=== PATIENT | male | born 1955 | race Caucasian/White ===

== ENCOUNTER 2022-01-15 10:26 | Inpatient (IN) | payer BC, MEDICARE ==
--- NOTE | 2022-01-15 10:55 | ED ---
General Adult HPI - General Chief complaint: Shortness of Breath Stated complaint: SOB,Chest Pain Time Seen by Provider: 01/15/22 10:40 Source: patient, RN notes reviewed, old records reviewed Mode of arrival: ambulatory Limitations: no limitations - History of Present Illness Initial comments: This is a 66-year-old male who presents emergency Department complaining shortness of breath. Patient states he has no past medical history. Patient states he was having some shortness of breath that started about 3 weeks ago but is gotten progressively worse over the last 3 weeks. Patient states now he walked just a few feet he's half an amp often and has a hard time getting his breath. Patient denies any chest pain or palpitations. Patient denies any fever chills or cough per patient states he had coded back in 2019 and had the vaccine. Patient states last night he walked up some stairs and did get lightheaded. Patient denies any syncopal episode. Patient denies any abdominal pain patient denies nausea vomiting diarrhea. Patient denies any history of similar. Patient states he is not a smoker. - Related Data Home Medications Medication Instructions Recorded Confirmed No Known Home Medications 01/15/22 01/15/22 Allergies Allergy/AdvReac Type Severity Reaction Status Date / Time No Known Allergies Allergy Verified 01/15/22 13:25 Review of Systems ROS Statement: Those systems with pertinent positive or pertinent negative responses have been documented in the HPI. ROS Other: All systems not noted in ROS Statement are negative. Past Medical History Additional Past Medical History / Comment(s): "irregular heart beat" History of Any Multi-Drug Resistant Organisms: None Reported Additional Past Surgical History / Comment(s): left knee operation 2017, Past Psychological History: Anxiety Smoking Status: Former smoker Past Alcohol Use History: None Reported Past Drug Use History: None Reported General Exam - General Exam Comments Initial Comments: GENERAL: Patient is well-developed and well-nourished. Patient is nontoxic and well- hydrated and is in no acute distress. ENT: Neck is soft and supple. No significant lymphadenopathy is noted. Oropharynx is clear. Moist mucous membranes. Neck has full range of motion without eliciting any pain. EYES: The sclera were anicteric and conjunctiva were pink and moist. Extraocular movements were intact and pupils were equal round and reactive to light. Eyelids were unremarkable. PULMONARY: Unlabored respirations. Good breath sounds bilaterally. No audible rales rhonchi or wheezing was noted. CARDIOVASCULAR: There is a regular rate and rhythm without any murmurs gallops or rubs. ABDOMEN: Soft and nontender with normal bowel sounds. SKIN: Skin is clear with no lesions or rashes and otherwise unremarkable. NEUROLOGIC: Patient is alert and oriented x3. Cranial nerves II through XII are grossly intact. Motor and sensory are also intact. Normal speech, volume and content. Symmetrical smile. MUSCULOSKELETAL: Normal extremities with adequate strength and full range of motion. LYMPHATICS: No significant lymphadenopathy is noted PSYCHIATRIC: Normal psychiatric evaluation. Limitations: no limitations Course Vital Signs 01/15/22 01/15/22 01/15/22 10:31 11:22 13:14 Temperature 98.2 F Pulse Rate 121 H 86 78 Respiratory 22 20 14 Rate Blood Pressure 129/80 133/92 132/85 O2 Sat by Pulse 95 95 95 Oximetry Medical Decision Making - Medical Decision Making EKG shows sinus rhythm at 84 bpm MA interval is 214 QRS is 123 QT interval is 373 QTC is 414. Patient's EKG shows no ST segment elevation or depression. Computed tomography scan of the chest shows pulmonary embolisms bilaterally with right heart strain. I spoke with Dr. Tony and she agreed to accept the patient I consult and I spoke with sounds physician's agreed to admit the patient to the patient wrote admitting orders. Patient was also started on high-dose heparin. - Lab Data Result diagrams: 01/15/22 11:05 01/15/22 11:05 Lab Results 01/15/22 01/15/22 01/15/22 Range/Units 11:05 11:05 11:05 WBC 8.7 (3.8-10.6) k/uL RBC 5.02 (4.30-5.90) m/uL Hgb 15.4 (13.0-17.5) gm/dL Hct 44.8 (39.0-53.0) % MCV 89.2 (80.0-100.0) fL MCH 30.6 (25.0-35.0) pg MCHC 34.3 (31.0-37.0) g/dL RDW 12.8 (11.5-15.5) % Plt Count 295 (150-450) k/uL MPV 6.8 Neutrophils % 81 % Lymphocytes % 12 % Monocytes % 4 % Eosinophils % 2 % Basophils % 0 % Neutrophils # 7.0 (1.3-7.7) k/uL Lymphocytes # 1.1 (1.0-4.8) k/uL Monocytes # 0.4 (0-1.0) k/uL Eosinophils # 0.1 (0-0.7) k/uL Basophils # 0.0 (0-0.2) k/uL PT 10.5 (9.0-12.0) sec INR 1.0 (<1.2) APTT 24.2 (22.0-30.0) sec D-Dimer 6.95 H (<0.60) mg/L FEU Sodium 140 (137-145) mmol/L Potassium 4.2 (3.5-5.1) mmol/L Chloride 105 (98-107) mmol/L Carbon Dioxide 22 (22-30) mmol/L Anion Gap 13 mmol/L BUN 12 (9-20) mg/dL Creatinine 0.77 (0.66-1.25) mg/dL Est GFR (CKD-EPI)AfAm >90 (>60 ml/min/1.73 sqM) Est GFR (CKD-EPI)NonAf >90 (>60 ml/min/1.73 sqM) Glucose 130 H (74-99) mg/dL Plasma Lactic Acid Richard (0.7-2.0) mmol/L Calcium 9.2 (8.4-10.2) mg/dL Magnesium 1.9 (1.6-2.3) mg/dL Total Bilirubin 1.0 (0.2-1.3) mg/dL AST 22 (17-59) U/L ALT 25 (4-49) U/L Alkaline Phosphatase 70 (38-126) U/L Troponin I (0.000-0.034) ng/mL NT-Pro-B Natriuret Pep pg/mL Total Protein 7.0 (6.3-8.2) g/dL Albumin 4.3 (3.5-5.0) g/dL Coronavirus (PCR) (Not Detectd) 01/15/22 01/15/22 01/15/22 Range/Units 11:05 11:05 11:05 WBC (3.8-10.6) k/uL RBC (4.30-5.90) m/uL Hgb (13.0-17.5) gm/dL Hct (39.0-53.0) % MCV (80.0-100.0) fL MCH (25.0-35.0) pg MCHC (31.0-37.0) g/dL RDW (11.5-15.5) % Plt Count (150-450) k/uL MPV Neutrophils % % Lymphocytes % % Monocytes % % Eosinophils % % Basophils % % Neutrophils # (1.3-7.7) k/uL Lymphocytes # (1.0-4.8) k/uL Monocytes # (0-1.0) k/uL Eosinophils # (0-0.7) k/uL Basophils # (0-0.2) k/uL PT (9.0-12.0) sec INR (<1.2) APTT (22.0-30.0) sec D-Dimer (<0.60) mg/L FEU Sodium (137-145) mmol/L Potassium (3.5-5.1) mmol/L Chloride (98-107) mmol/L Carbon Dioxide (22-30) mmol/L Anion Gap mmol/L BUN (9-20) mg/dL Creatinine (0.66-1.25) mg/dL Est GFR (CKD-EPI)AfAm (>60 ml/min/1.73 sqM) Est GFR (CKD-EPI)NonAf (>60 ml/min/1.73 sqM) Glucose (74-99) mg/dL Plasma Lactic Acid Richard 1.5 (0.7-2.0) mmol/L Calcium (8.4-10.2) mg/dL Magnesium (1.6-2.3) mg/dL Total Bilirubin (0.2-1.3) mg/dL AST (17-59) U/L ALT (4-49) U/L Alkaline Phosphatase (38-126) U/L Troponin I 0.266 H* (0.000-0.034) ng/mL NT-Pro-B Natriuret Pep 557 pg/mL Total Protein (6.3-8.2) g/dL Albumin (3.5-5.0) g/dL Coronavirus (PCR) (Not Detectd) 01/15/22 Range/Units 11:05 WBC (3.8-10.6) k/uL RBC (4.30-5.90) m/uL Hgb (13.0-17.5) gm/dL Hct (39.0-53.0) % MCV (80.0-100.0) fL MCH (25.0-35.0) pg MCHC (31.0-37.0) g/dL RDW (11.5-15.5) % Plt Count (150-450) k/uL MPV Neutrophils % % Lymphocytes % % Monocytes % % Eosinophils % % Basophils % % Neutrophils # (1.3-7.7) k/uL Lymphocytes # (1.0-4.8) k/uL Monocytes # (0-1.0) k/uL Eosinophils # (0-0.7) k/uL Basophils # (0-0.2) k/uL PT (9.0-12.0) sec INR (<1.2) APTT (22.0-30.0) sec D-Dimer (<0.60) mg/L FEU Sodium (137-145) mmol/L Potassium (3.5-5.1) mmol/L Chloride (98-107) mmol/L Carbon Dioxide (22-30) mmol/L Anion Gap mmol/L BUN (9-20) mg/dL Creatinine (0.66-1.25) mg/dL Est GFR (CKD-EPI)AfAm (>60 ml/min/1.73 sqM) Est GFR (CKD-EPI)NonAf (>60 ml/min/1.73 sqM) Glucose (74-99) mg/dL Plasma Lactic Acid Richard (0.7-2.0) mmol/L Calcium (8.4-10.2) mg/dL Magnesium (1.6-2.3) mg/dL Total Bilirubin (0.2-1.3) mg/dL AST (17-59) U/L ALT (4-49) U/L Alkaline Phosphatase (38-126) U/L Troponin I (0.000-0.034) ng/mL NT-Pro-B Natriuret Pep pg/mL Total Protein (6.3-8.2) g/dL Albumin (3.5-5.0) g/dL Coronavirus (PCR) Not Detected (Not Detectd) Critical Care Time Critical Care Time: Yes Total Critical Care Time: 35 Disposition Clinical Impression: Pulmonary embolism Disposition: ADMITTED IP TO THIS HOSP Time of Disposition: 12:49
[2022-01-15 11:15] LABS: Basophils % (A) 0 %; Eosinophils # (A) 0.1 k/uL (0-0.7); Eosinophils % (A) 2 %; HCT 44.8 % (39.0-53.0); HGB 15.4 gm/dL (13.0-17.5); Lymphocytes # (A) 1.1 k/uL (1.0-4.8); Lymphocytes % (A) 12 %; MCH 30.6 pg (25.0-35.0); MCHC 34.3 g/dL (31.0-37.0); MCV 89.2 fL (80.0-100.0); Mean Platelet Volume 6.8; Monocytes # (A) 0.4 k/uL (0-1.0); Monocytes % (A) 4 %; Neutrophils % (A) 81 %; Platelet Count 295 k/uL (150-450); RBC 5.02 m/uL (4.30-5.90); RDW 12.8 % (11.5-15.5); WBC 8.7 k/uL (3.8-10.6)
[2022-01-15 11:27] LABS: ALT 25 U/L (4-49); AST 22 U/L (17-59); African American GFR (CKD) >90 (>60 ml/min/1.73 sqM); Albumin 4.3 g/dL (3.5-5.0); Alkaline Phosphatase 70 U/L (38-126); Anion Gap 13 mmol/L; Blood Urea Nitrogen 12 mg/dL (9-20); Calcium 9.2 mg/dL (8.4-10.2); Carbon Dioxide 22 mmol/L (22-30); Chloride 105 mmol/L (98-107); Glucose 130 mg/dL (74-99); Magnesium 1.9 mg/dL (1.6-2.3); Non-African American GFR(CKD) >90 (>60 ml/min/1.73 sqM); Potassium 4.2 mmol/L (3.5-5.1); Sodium 140 mmol/L (137-145)
--- NOTE | 2022-01-15 11:30 | XR ---
EXAMINATION TYPE: XR chest 2V DATE OF EXAM: 01/15/2022 COMPARISON: NONE HISTORY: Difficulty in breathing. TECHNIQUE: Frontal and lateral views of the chest are obtained. FINDINGS: There is chronic parenchymal changes bilaterally without suspicious focal air space opacit y, pleural effusion, or pneumothorax seen. The cardiac silhouette size is within normal limits. Brid ging osteophytes in the thoracic spine are present. IMPRESSION: Chronic changes without acute pulmonary process.
[2022-01-15 11:37] LABS: Partial Thromboplastin Time 24.2 sec (22.0-30.0); Prothrombin Time 10.5 sec (9.0-12.0)
[2022-01-15] MEDS ORDERED: HEPARIN SODIUM 1,000 UN/ML (10ML VL) IV ONE (12:26)
[2022-01-15] MEDS ORDERED: HEPARIN SOD,PORK IN 0.45% NACL 25,000 UNIT in 0.45% NACL 1 250ML.BAG IV SCH ×3 (12:30→14:15)
--- NOTE | 2022-01-15 12:42 | CT ---
EXAMINATION TYPE: CT chest angio for PE CT DLP: 722.5 mGycm, Automated exposure control for dose reduction was used. DATE OF EXAM: 01/15/2022 12:26 PM COMPARISON: Chest radiograph from same day. CLINICAL INDICATION:Male, 66 years old with history of Elevated d-dimer; Shortness of breath, chest p ains, elevated d dimer TECHNIQUE/CONTRAST: CTA scan of the thorax is performed with IV Contrast, patient injected with 100 mL of Isovue 370, pul monary embolism protocol. MIP images are created and reviewed. FINDINGS: Motion degraded examination. Pulmonary Artery: There are filling defects demonstrated within the bilateral main pulmonary arteries extending into the segmental and subsegmental pulmonary arteries throughout both lungs. The pulmonar y artery is dilated measuring up to 4.2 cmReflux of contrast into the IVC. Lungs/Pleura: No pneumothorax or pleural effusion. Patchy small wedge-shaped opacities within the sup erior segment of the left lower lobe and inferior right lower lobe likely representing infarcts. Airway: Large airways are patent. Heart: Moderately enlarged. No pericardial effusion. Vasculature: Ectasia of the ascending thoracic aorta measuring up to 4.3 cm. Flattening of the interv entricular septum with dilatation of the right ventricle with ratio 1.5. Mediastinum: No gross evidence of adenopathy. Musculoskeletal: No acute osseous abnormalities. Bilateral shoulder arthropathy. Moderate degenerativ e disc disease. Soft Tissues: Unremarkable. Lower neck: No significant findings. Upper Abdomen: Subcentimeter hypodensity within the left hepatic lobe which is too small to accuratel y characterize.. IMPRESSION: 1. Extensive pulmonary emboli with CT evidence of right heart strain. 2. Wedge-shaped consolidative/groundglass opacities within the bilateral lower lobes likely represent ing pulmonary infarcts in the setting of #1. 3. Moderate cardiomegaly with ectasia of the ascending thoracic aorta measuring up to 4.3 cm. Findings discussed with the ER at 12:31 PM.
[2022-01-15] MEDS ORDERED: SODIUM CHLORIDE 0.9% 1,000 ML IV ONE (12:49)
--- NOTE | 2022-01-15 13:46 | P.GSCN ---
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 He presented to the emergency department with complaints of shortness of breath. Patient initially started having shortness of breath with exertion 2-3 weeks ago. [place], then had been experiencing and as he was walking up the stairs. Over the last week he had driven to and from the [facility], denies any other traveling. He denies any recent surgeries. Does have a knee that he has been getting steroids and then likely will require surgery in the near future. He denies any pain in his legs, no previous history of DVT or pulmonary embolism, no family history of clotting disorders that he is aware of. He is a nonsmoker. Labs were consistent with elevated troponin, CT angiogram of the chest shows bilateral pulmonary embolism with evidence of right heart strain. Vascular surgery was consulted for the above. She denies any shortness of breath presently while lying down, no chest pain, abdominal pain, nausea or vomiting. His been afebrile. Oxygen level 95% on room air, heart rate 78, respiratory rate 14, blood pressure 132/85 CT angiogram chest reports extensive pulmonary emboli with CT evidence of right heart strain, wedge-shaped consolidation/ground glass opacities within the bilateral lower lobes likely representing pulmonary infarcts in the setting of #1. Moderate cardiomegaly with ectasia of the ascending thoracic aorta measuring up to 4.3 cm Labs WBC 8.7 hemoglobin 15.4 hematocrit 89 platelet count 295,000 INR 1.0 d-dimer 6.95 sodium 140 potassium 4.2 BUN 12 creatinine 0.7 glucose 130 troponin 0.266 coronavirus and not detected Past Medical History Additional Past Medical History / Comment(s): "irregular heart beat" History of Any Multi-Drug Resistant Organisms: None Reported Additional Past Surgical History / Comment(s): left knee operation 2017, Past Psychological History: Anxiety Smoking Status: Former smoker Past Alcohol Use History: None Reported Past Drug Use History: None Reported Medications and Allergies Home Medications Medication Instructions Recorded Confirmed Type No Known Home Medications 01/15/22 01/15/22 History Allergies Allergy/AdvReac Type Severity Reaction Status Date / Time No Known Allergies Allergy Verified 01/15/22 13:25 Surgical - Exam Vital Signs Temp Pulse Resp BP Pulse Ox 98.2 F 121 H 22 129/80 95 01/15/22 10:31 01/15/22 10:31 01/15/22 10:31 01/15/22 10:31 01/15/22 10:31 General appearance: The patient is alert, oriented, appears in no acute d istress. HET: Head is normocephalic and atraumatic. Neck: Supple. Heart: Regular rate and rhythm. Lungs: Appeared in no distress, equal expansion of the lungs. Abdomen: Soft, nontender, nondistended. Extremities: Normal skin color and turgor. No cyanosis, rash, ulceration, clubbing, or edema. Neurological: No focal deficits. Alert and oriented. Results - Labs 01/15/22 11:05 01/15/22 11:05 Abnormal Lab Results - Last 24 Hours (Table) 01/15/22 01/15/22 01/15/22 Range/Units 11:05 11:05 11:05 D-Dimer 6.95 H (<0.60) mg/L FEU Glucose 130 H (74-99) mg/dL Troponin I 0.266 H* (0.000-0.034) ng/mL Diabetes panel 01/15/22 Range/Units 11:05 Sodium 140 (137-145) mmol/L Potassium 4.2 (3.5-5.1) mmol/L Chloride 105 (98-107) mmol/L Carbon Dioxide 22 (22-30) mmol/L BUN 12 (9-20) mg/dL Creatinine 0.77 (0.66-1.25) mg/dL Glucose 130 H (74-99) mg/dL Calcium 9.2 (8.4-10.2) mg/dL AST 22 (17-59) U/L ALT 25 (4-49) U/L Alkaline Phosphatase 70 (38-126) U/L Total Protein 7.0 (6.3-8.2) g/dL Albumin 4.3 (3.5-5.0) g/dL Calcium panel 01/15/22 Range/Units 11:05 Calcium 9.2 (8.4-10.2) mg/dL Albumin 4.3 (3.5-5.0) g/dL Pituitary panel 01/15/22 Range/Units 11:05 Sodium 140 (137-145) mmol/L Potassium 4.2 (3.5-5.1) mmol/L Chloride 105 (98-107) mmol/L Carbon Dioxide 22 (22-30) mmol/L BUN 12 (9-20) mg/dL Creatinine 0.77 (0.66-1.25) mg/dL Glucose 130 H (74-99) mg/dL Calcium 9.2 (8.4-10.2) mg/dL Adrenal panel 01/15/22 Range/Units 11:05 Sodium 140 (137-145) mmol/L Potassium 4.2 (3.5-5.1) mmol/L Chloride 105 (98-107) mmol/L Carbon Dioxide 22 (22-30) mmol/L BUN 12 (9-20) mg/dL Creatinine 0.77 (0.66-1.25) mg/dL Glucose 130 H (74-99) mg/dL Calcium 9.2 (8.4-10.2) mg/dL Total Bilirubin 1.0 (0.2-1.3) mg/dL AST 22 (17-59) U/L ALT 25 (4-49) U/L Alkaline Phosphatase 70 (38-126) U/L Total Protein 7.0 (6.3-8.2) g/dL Albumin 4.3 (3.5-5.0) g/dL Assessment and Plan Assessment: 1. Extensive bilateral pulmonary emboli with suspected right heart strain 2. Shortness of breath Plan: 1. Start heparin drip 2. Await echocardiogram results 3. Venous duplex bilateral lower extremities 4. Consider consultation to hematology 5. Further recommendations based on findings of echocardiogram, if right heart strain confirmed will proceed with EKOS Thank you for this consultation, we will continue to follow. The impression and plan of care has been dictated as directed. I performed a history and examination of this patient, discussed the same with the dictator. I agree with the dictator's note ,documented as a scribe. Any additional findings or plans will be noted.
[2022-01-15] MEDS ORDERED: ALTEPLASE 10 MG in SODIUM CHLORIDE 0.9% 90 ML IV ONE (14:06)
[2022-01-15] MEDS ORDERED: SODIUM CHLORIDE 0.9% 1,000 ML IV SCH ×3 (14:15)
[2022-01-15 15:18] LABS: Basophils # (A) 0.1 k/uL (0-0.2); Basophils % (A) 1 %; Eosinophils # (A) 0.1 k/uL (0-0.7); Eosinophils % (A) 1 %; HCT 45.9 % (39.0-53.0); HGB 15.6 gm/dL (13.0-17.5); Lymphocytes # (A) 1.7 k/uL (1.0-4.8); Lymphocytes % (A) 20 %; MCH 30.8 pg (25.0-35.0); MCHC 33.9 g/dL (31.0-37.0); MCV 90.8 fL (80.0-100.0); Mean Platelet Volume 6.9; Monocytes # (A) 0.4 k/uL (0-1.0); Monocytes % (A) 4 %; Neutrophils # (A) 6.4 k/uL (1.3-7.7); Neutrophils % (A) 73 %; Platelet Count 272 k/uL (150-450); RBC 5.05 m/uL (4.30-5.90); RDW 12.8 % (11.5-15.5); WBC 8.8 k/uL (3.8-10.6)
[2022-01-15 15:56] LABS: Partial Thromboplastin Time 77.4 sec (22.0-30.0)
[2022-01-15 16:08] LABS: African American GFR (CKD) >90 (>60 ml/min/1.73 sqM); Anion Gap 14 mmol/L; Blood Urea Nitrogen 12 mg/dL (9-20); Calcium 9.3 mg/dL (8.4-10.2); Carbon Dioxide 22 mmol/L (22-30); Chloride 104 mmol/L (98-107); Glucose 97 mg/dL (74-99); Non-African American GFR(CKD) >90 (>60 ml/min/1.73 sqM); Sodium 140 mmol/L (137-145)
[2022-01-15 16:28] LABS: Potassium 4.4 mmol/L (3.5-5.1)
[2022-01-15] MEDS ORDERED: fentaNYL (PF) 50 MCG/ML 2 ML AMP ONE (17:06)
[2022-01-15] MEDS: fentaNYL (PF) 50 MCG/ML 2 ML AMP IV ONE ×2 (17:25→17:56)
[2022-01-15] MEDS: MIDAZOLAM 2 MG/2 ML VIAL IV ONE ×2 (17:25→17:56)
[2022-01-15] MEDS ORDERED: IV FLUID CONTINUATION 800 ML IV ONE (17:25)
[2022-01-15] MEDS ORDERED: LIDOCAINE 1% INJ 10MG/ML (30 ML VIAL-PF) SQ ONE (17:29)
[2022-01-15] MEDS: ALTEPLASE 10 MG in SODIUM CHLORIDE 0.9% 90 ML IV ONE ×6 (17:31→18:58)
[2022-01-15] MEDS: HEPARIN SOD,PORK IN 0.45% NACL 25,000 UNIT in 0.45% NACL 1 250ML.BAG IV SCH ×4 (17:32→19:00)
[2022-01-15] MEDS: SODIUM CHLORIDE 0.9% 1,000 ML IV SCH ×7 (17:32→19:02)
[2022-01-15] MEDS ORDERED: ALTEPLASE 2 MG VIAL (CATHFLO) MISCELLANE ONE (17:49)
[2022-01-15] MEDS ORDERED: ONDANSETRON 4 MG/2 ML VIAL IVP PRN (18:17)
--- NOTE | 2022-01-15 18:25 | P.OP ---
Date of Procedure: 01/15/22 Preoperative Diagnosis: Bilateral submassive pulmonary embolism. Postoperative Diagnosis: Same. Procedure(s) Performed: #1 Ultrasound-guided cannulation left femoral vein 2. #2: Placement of Ekos catheter into the pulmonary artery on a bilateral basis with initiation of TPA thrombo-lysis. Anesthesia: local (With 2 mg of Versed administered intravenously for moderate conscious sedation purposes.) Surgeon: Houston Connors Estimated Blood Loss (ml): 5 Urine output (ml): 0 Pathology: none sent Condition: stable Disposition: ICU Indications for Procedure: Patient is a 66-year-old male who presented with a three-week history of easy fatigability and eventually this progressed to shortness of breath. He presented the emergency room. CTA of the pulmonary arteries demonstrates bilateral submassive pulmonary emboli. Evidence of right heart strain was noted on echocardiogram and troponins were elevated. Because of this the patient is offered to TPA thrombo-lysis. This understood that the clot may be somewhat resistant to thrombo-lysis due to the significant possibility of chronicity greater than 2 weeks. Description of Procedure: Patient was brought to the special procedure suite. Both groins were sterilely prepped and draped in usual manner. Utilizing ultrasound the left common femoral vein was identified. 1% Xylocaine was utilized for local anesthesia tissues overlying the left femoral artery. Through this anesthetized area with the aid of ultrasound a multipurpose needle was utilized to cannulate the vein. Once cannulated a 0.035 inch guidewire was advanced. The needle was withdrawn and a 5-Mohawk sheath was placed. This was repeated a second time. Each sheath was then secured to the skin with nylon suture. Angled glide catheter and guidewire combinations were utilized to selective right pulmonary artery. Honey was exposed variants advancing the catheter into the more distal pulmonary segment due to presumed thrombus burden. The glide wire was removed and glide advantage guidewire was advanced through the angled glide catheter. The glide catheter was then removed and the cross catheter was advanced over the guidewire into the right pulmonary artery. Guidewire was withdrawn and the vibrating core of the catheter was advanced and secured. 2 mg of TPA were then instilled through the drug lumen of each catheter. A similar procedure was performed to cannulate the left pulmonary artery as described for the right. Proper dressings were applied. Patient tolerated procedure well.
[2022-01-15 18:40] LABS: Glucose,Whole Blood 96 mg/dL (70-110)
--- NOTE | 2022-01-15 19:55 | US ---
EXAMINATION TYPE: US venous doppler duplex LE BI DATE OF EXAM: 01/15/2022 7:37 PM COMPARISON: CT chest 01/15/2022 CLINICAL HISTORY: Bilateral PE, evaluate for DVT. bilateral PE SIDE PERFORMED: Bilateral TECHNIQUE: The lower extremity deep venous system is examined utilizing real time linear array sonog vidal with graded compression, doppler sonography and color-flow sonography. VESSELS IMAGED: Common Femoral Vein Deep Femoral Vein Greater Saphenous Vein * Femoral Vein Popliteal Vein Small Saphenous Vein * Proximal Calf Veins (* superficial vessels) Right Leg: Echogenic material in mid and distal popilteal vein Left Leg: CFV not visualized due to patient having a heparin drip in groin. Could not compress dista l femoral vein. Popliteal vein limited due to pt not being able to bend leg, but veins did not appear compressible. IMPRESSION: Exam is limited. Deep venous thrombosis noted in the right popliteal and superficial femo ral vein, likely left popliteal vein
[2022-01-15 19:59] LABS: Basophils % (A) 1 %; Eosinophils # (A) 0.1 k/uL (0-0.7); Eosinophils % (A) 1 %; HCT 43.9 % (39.0-53.0); HGB 15.1 gm/dL (13.0-17.5); Lymphocytes # (A) 2.1 k/uL (1.0-4.8); Lymphocytes % (A) 25 %; MCH 31.1 pg (25.0-35.0); MCHC 34.4 g/dL (31.0-37.0); MCV 90.3 fL (80.0-100.0); Monocytes # (A) 0.5 k/uL (0-1.0); Monocytes % (A) 5 %; Neutrophils # (A) 5.8 k/uL (1.3-7.7); Neutrophils % (A) 67 %; Platelet Count 262 k/uL (150-450); RBC 4.87 m/uL (4.30-5.90); RDW 13.1 % (11.5-15.5); WBC 8.6 k/uL (3.8-10.6)
[2022-01-15] MEDS: HYDROcodone/APAP 5-325MG 1 EACH TAB PO PRN (21:25)
[2022-01-16] MEDS: HYDROcodone/APAP 5-325MG 1 EACH TAB PO PRN (06:16)
[2022-01-16 08:51] LABS: HCT 41.3 % (39.0-53.0); HGB 13.9 gm/dL (13.0-17.5); MCH 30.7 pg (25.0-35.0); MCHC 33.7 g/dL (31.0-37.0); MCV 91.1 fL (80.0-100.0); Mean Platelet Volume 7.5; Platelet Count 217 k/uL (150-450); RBC 4.53 m/uL (4.30-5.90); RDW 12.9 % (11.5-15.5); WBC 8.3 k/uL (3.8-10.6)
[2022-01-16 09:04] LABS: Partial Thromboplastin Time 25.3 sec (22.0-30.0); Prothrombin Time 10.9 sec (9.0-12.0)
--- NOTE | 2022-01-16 09:52 | CA ---
Transthoracic Echo Report Name: Lm Avila Age: 66 Gender: M : 1955 Exam Date: 01/15/2022 13:01 Exam Location: [place] [facility] Ht (in): 75 Wt (lb): 265 Ordering Physician: Bony Jensen MD Attending/Referring Phys: Hotel Clerk Wendy Valdez RDCS Procedure CPT: Indications: Pulmonary Embolism Cardiac Hx: Technical Quality: Good Contrast 1: Total Dose (mL): Contrast 2: Total Dose (mL): MEASUREMENTS (Male / Female) Normal Values 2D ECHO LV Diastolic Diameter PLAX 4.5 cm 4.2 - 5.9 / 3.9 - 5.3 cm LV Systolic Diameter PLAX 2.9 cm IVS Diastolic Thickness 1.6 cm 0.6 - 1.0 / 0.6 - 0.9 cm LVPW Diastolic Thickness 1.4 cm 0.6 - 1.0 / 0.6 - 0.9 cm LV Relative Wall Thickness 0.7 RV Internal Dim ED PLAX 4.0 cm LA Systolic Diameter LX 4.2 cm 3.0 - 4.0 / 2.7 - 3.8 cm LA Volume 68.7 cm??? 18 - 58 / 22 - 52 cm??? M-MODE Aortic Root Diameter MM 4.0 cm MV E Point Septal Separation 1.3 cm AV Cusp Separation MM 2.9 cm DOPPLER AV Peak Velocity 140.9 cm/s AV Peak Gradient 7.9 mmHg AI Peak Velocity 374.9 cm/s AI Peak Gradient 56.2 mmHg AI Pressure Half Time 554.4 ms MV Area PHT 3.9 cm??? Mitral E Point Velocity 48.5 cm/s Mitral A Point Velocity 61.3 cm/s Mitral E to A Ratio 0.8 MV Deceleration Time 193.9 ms MV E' Velocity 7.7 cm/s Mitral E to MV E' Ratio 6.3 TR Peak Velocity 266.8 cm/s TR Peak Gradient 28.5 mmHg Right Ventricular Systolic Press 33.3 mmHg FINDINGS Left Ventricle Left ventricular ejection fraction is estimated at 55-60 %. Left ventricular cavity size normal. Moderate concentric left ventricular hypertrophy. Right Ventricle Moderate to severe right ventricular dilatation. Mild pulmonary hypertension. Right Atrium Normal right atrial size. Left Atrium Mildly increased left atrial diameter. Mildly increased left atrial volume. No evidence for an atrial septal defect. Mitral Valve Structurally normal mitral valve. No mitral stenosis, regurgitation or prolapse. Aortic Valve Trileaflet aortic valve, focal thickening of the aortic valve cusps. Mild aortic regurgitation. Tricuspid Valve Structurally normal tricuspid valve. Mild tricuspid regurgitation. Pulmonic Valve Mild pulmonic regurgitation. Pericardium Normal pericardium. No pericardial effusion. Aorta Moderate aortic dilatation at the level of the sinuses of valsalva 40 mm CONCLUSIONS Left ventricular ejection fraction 55-60% Moderate LVH RVSP 33 however possibly underestimated secondary to RV dilation and hypokinesis Moderate to severely dilated right ventricle with mild RV hypokinesis Mild tricuspid regurgitation Mild aortic regurgitation Ascending aorta 4.0 cm Previewed by: Dr. Navneet Padgett DO (Electronically Signed) Final Date: 16 January 2022 09:51
--- NOTE | 2022-01-16 09:54 | CDI ---
Documentation Clarification Form Date: 01/16/2022 09:36:38 AM From: Lynda Ardon RN CCDS Admit Date: 01/15/2022 12:49:00 PM Patient Name: Lm Avila Visit Number: [id number] Discharge Date: ATTENTION: The Clinical Documentation Specialists (CDI) and [facility] Coding Staff appreciate your assistance in clarifying documentation. Please respond to the clarification below the line at the bottom and electronically sign. The CDI & [facility] Coding staff will review the response and follow-up if needed. Please note: Queries are made part of the Legal Health Record. If you have any questions, please contact the author of this message via ITS. Dr. Houston Connors Suspected right heart strain is documented 01/15, Vascular Surgery note. Additional clarification regarding the Suspected right heart strain is requested. History/Risk Factors: 66-year-old male presents to the ED with shortness of breath with exertion started 2-3 weeks ago. Medical history: Irregular heartbeat and anxiety. 01/15, Vascular Surgery. Clinical Indicators: BNP 01/15: 557 CT chest angio: 02/15 Extensive pulmonary emboli with CT evidence of right heart strain. Treatment: 01/15 EXOS Catheter; 01/15 01/16 Alteplase IVPB; 01/15 01/15 Heparin IVPB Please clarify the acuity and etiology of Cor pulmonale, if known: [ ] Acute Cor pulmonale due to pulmonary embolism [ x ] Unable to determine [ ] Other, please specify Template Last Revised: May 2020) MTDD
[2022-01-16] MEDS ORDERED: APIXABAN 5 MG TAB PO SCH (12:00)
--- NOTE | 2022-01-16 12:02 | P.PN ---
Subjective Progress Note Date: 01/16/22 Principal diagnosis: Bilateral Pulmonary embolism The patient seen and examined today as a follow-up. He is in the ICU. Yesterday he underwent EKOS for his submassive bilateral pulmonary embolism with right heart strain. Today the patient states his breathing is easier. He feels like he does not take a speck of a deep breath. His oxygen saturation has been stable 94-96%. He did have to have a couple liters of oxygen through the night while he was sleeping. He's been afebrile. No signs of bleeding. Bilateral lower extremities with good sensorimotor. Objective - Vital Signs Vital signs: Vital Signs Temp 98.0 F 01/16/22 08:00 Pulse 58 L 01/16/22 10:00 Resp 10 L 01/16/22 10:00 BP 118/72 01/16/22 10:00 Pulse Ox 97 01/16/22 10:00 FiO2 Intake & Output 01/15/22 01/16/22 01/16/22 18:59 06:59 18:59 Intake Total 50 1360.0 375.0 Output Total 550 0 Balance 50 810.0 375.0 Weight 120.202 kg 125.8 kg Intake: IV 50 Intake, IV Titration 1360.0 225.0 Amount Alteplase 10 mg In Sodium 80 Chloride 0.9% 90 ml @ 1 MG/HR 10 mls/hr IV .Q10H [facility] Rx#:[id number] Alteplase 10 mg In Sodium 80 Chloride 0.9% 90 ml @ 1 MG/HR 10 mls/hr IV .Q10H [facility] Rx#:[id number] Heparin Sod,Pork in 0.45% 27.5 7.5 NaCl 25,000 unit In 0.45 % NaCl 1 250ml.bag @ 2.5 mls/hr IV .Q24H [facility] Rx#: [id number] Heparin Sod,Pork in 0.45% 27.5 7.5 NaCl 25,000 unit In 0.45 % NaCl 1 250ml.bag @ 2.5 mls/hr IV .Q24H [facility] Rx#: [id number] Sodium Chloride 0.9% 1, 385 105 000 ml @ 35 mls/hr IV . Q24H [facility] Rx#:[id number] Sodium Chloride 0.9% 1, 385 105 000 ml @ 35 mls/hr IV . Q24H [facility] Rx#:[id number] Sodium Chloride 0.9% 1, 375 000 ml @ 75 mls/hr IV . [id number] [facility] Rx#:[id number] Oral 150 Output: Urine 550 0 Other: Voiding Method Urinal - Exam General appearance: The patient is alert, oriented, appears in no acute di stress. HET: Head is normocephalic and atraumatic. Pupils are equal and reactive. Neck: Supple. Heart: S1 S2. Regular rate and rhythm. Lungs: Clear to auscultation bilaterally. Abdomen: Soft, nontender, nondistended. Extremities: Normal skin color and turgor. No cyanosis, rash, ulceration, club carla, or edema. Radial a of left groin with catheter and sheaths in place, no hematoma or bleeding noted. Bilateral pedal pulses are 2/4 bilaterally. Neurological: No focal deficits. Strength and sensation are grossly intact. - Labs CBC & Chem 7: 01/16/22 07:49 01/15/22 15:05 Labs: Abnormal Lab Results - Last 24 Hours (Table) 01/15/22 01/15/22 01/15/22 Range/Units 11:05 11:05 11:05 APTT (22.0-30.0) sec D-Dimer 6.95 H (<0.60) mg/L FEU Glucose 130 H (74-99) mg/dL Troponin I 0.266 H* (0.000-0.034) ng/mL 01/15/22 Range/Units 15:05 APTT 77.4 H (22.0-30.0) sec D-Dimer (<0.60) mg/L FEU Glucose (74-99) mg/dL Troponin I (0.000-0.034) ng/mL Assessment and Plan Assessment: 1. Extensive bilateral pulmonary emboli with right heart strain status post EKOS initiation of TPA thrombolysis 2. Shortness of breath Plan: 1. Discontinue heparin and EKOS 2. EKOS catheters removed, please remove sheaths and apply pressure until hemostasis achieved 3. Patient to lie flat for 1-2 hours status post sheath removal then may ambulate as tolerated 4. Start Eliquis 10 mg BID, give first dose now 5. From a vascular surgical standpoint if patient does well ambulating and oxygen saturation stable he may be discharged home if cleared by medicine Thank you for this consultation, we will sign off at this time. The impression and plan of care has been dictated as directed. I performed a history and examination of this patient, discussed the same with the dictator. I agree with the dictator's note ,documented as a scribe. Any additional findings or plans will be noted.
[2022-01-16 12:35] VITALS: TEMP 98.4
[2022-01-16 15:01] VITALS: BP 129/83; PULSE 61; RESP 12
--- NOTE | 2022-01-16 16:02 | P.HPIM ---
History of Present Illness H&P Date: 01/15/22 Chief Complaint: Short of breath This is a very pleasant 66-year-old patient who does follow Dr. Hugo Pritchard. Patient has been much unremarkable pass medical history except for arthritis especially the knees. Patient does a nonambulatory drop pretty much sits on the desk quite a bit. Otherwise no real other medical history. About 3 weeks ago while playing golf noticed that he is beginning short of breath and walking incline. He notices that the symptoms progressively got worse. Becoming more and more short of breath. Became more profound yesterday. No orthopnea. No edema. No swelling of the legs. No family history of blood clots. Symptoms became quite significant yesterday. No fever no chills. No cough. In the ER as chest CTA showed bilateral extensive pulmonary emboli with evidence of right heart strain. When I was called by Dr. Jensen from ER and did call Dr. Tony from vascular. They do patient was taken down to the OR andECOS was placed. Saw the patient with ICU. at the bedside. Review of systems: GEN.: Tired EYES: None HEENT: None NECK: None RESPIRATORY: As above CARDIOVASCULAR: None GASTROINTESTINAL: None GENITOURINARY: None MUSCULOSKELETAL: Joint pains LYMPHATICS: None HEMATOLOGICAL: None PSYCHIATRY: None NEUROLOGICAL: None Past medical history to include: Arthritis Social history: . Employed. Does smoke in the past. No significant alcohol history. Family history: Reviewed, noncontributory to presentation Physical examination: VITAL SIGNS: 98.2, 121, 22, 129/80, 95% room air upon presentation GENERAL: BMI 34.7, laying in bed not in distress. EYES: Pupils equal. Conjunctiva normal. HEENT: External appearance of nose and ears normal, oral cavity grossly normal. NECK: JVD not raised; masses not palpable. HEART: First and second heart sounds are normal; no edema. LUNGS: Respiratory rate normal; decreased breath sound. ABDOMEN: Soft, nontender, liver spleen not palpable, no masses palpable. Drawn IV access forECOS PSYCH: Alert and oriented x3; mood and affect normal. MUSCULOSKELETAL:No Clubbing/cyanosis;muscles-grossly intact. Evidence of OA NEUROLOGICAL: Cranial nerves grossly intact; no facial asymmetry, power and sensation grossly intact. LYMPHATICS: No lymph nodes palpable in the axilla and neck INVESTIGATIONS, reviewed in the clinical context: WBC 8.7 hemoglobin 15.4 potassium 4.2 creatinine 0.77 Troponin I 0.266 COVID 19: Not detected 2-D echocardiogram: EF 55-60%. Moderate concentric LVH. Moderate to severe right ventricular dilatation. EKG tracing personally reviewed by me-normal sinus rhythm, nonspecific finding Chest CTA: Extensive pulmonary emboli with evidence of right heart strain. Right sacral consolidation opacities within the bilateral lower lobes. Moderate cardiomegaly. Assessment and plan: -Acute bilateral severe pulmonary embolism with right ventricular dilatation. IV heparin. Vascular surgical consulted who proceeded to do well ECOS with IV heparin and IV TPA. -Bilateral acute pulmonary infarct from PE - left ventricular hypertrophy -IV heparin monitoring Follow PTT -Obesity BMI 34.7 Weight loss measures -Primary osteoarthritis Tylenol as needed Patient ICU.ECOS system in place with IV heparin and TPA. Being closely bucky tored. Follow with vascular. Care was discussed with the patient and at the bedside. Questions answered. Past Medical History Additional Past Medical History / Comment(s): "irregular heart beat" History of Any Multi-Drug Resistant Organisms: None Reported Past Surgical History: Orthopedic Surgery Additional Past Surgical History / Comment(s): left knee operation 2017, Past Psychological History: Anxiety Smoking Status: Former smoker Past Alcohol Use History: None Reported Past Drug Use History: None Reported Medications and Allergies Home Medications Medication Instructions Recorded Confirmed Type Apixaban [Eliquis Starter Pack 5 - 10 mg PO DIRECTED 30 Days 01/16/22 Rx (for VTE)] #1 each Allergies Allergy/AdvReac Type Severity Reaction Status Date / Time No Known Allergies Allergy Verified 01/15/22 13:25 Physical Exam Vitals: Vital Signs Temp Pulse Pulse Resp BP BP Pulse Ox 01/16/22 10:00 58 L 10 L 118/72 97 01/16/22 09:00 55 L 14 119/74 95 01/16/22 08:00 98.0 F 59 L 18 111/87 96 01/16/22 07:00 54 L 15 126/82 96 01/16/22 06:00 17 118/86 94 L 01/16/22 05:00 53 L 23 110/81 97 01/16/22 04:00 97.8 F 56 L 16 113/78 01/16/22 03:00 53 L 18 111/67 95 10/21/22 02:00 61 18 114/82 95 01/16/22 01:00 58 L 14 114/76 94 L 01/16/22 00:14 18 114/76 95 01/16/22 00:00 97.8 F 63 21 114/75 94 L 01/15/22 23:00 73 27 H 93 L 01/15/22 22:45 73 22 93 L 01/15/22 22:30 67 23 94 L 01/15/22 22:15 68 19 115/78 91 L 01/15/22 22:00 59 L 12 90 L 01/15/22 21:45 64 13 106/88 92 L 01/15/22 21:30 72 17 106/88 93 L 01/15/22 21:15 72 21 106/88 90 L 01/15/22 21:00 69 20 116/80 94 L 01/15/22 20:59 19 01/15/22 20:49 19 120/62 93 L 01/15/22 20:45 72 17 116/80 90 L 01/15/22 20:30 72 14 124/78 93 L 01/15/22 20:15 80 21 124/78 94 L 01/15/22 20:00 97.9 F 72 20 117/83 90 L 01/15/22 19:45 75 14 117/83 91 L 01/15/22 19:30 78 15 123/96 92 L 01/15/22 19:15 73 17 85/66 93 L 01/15/22 19:00 71 14 124/94 92 L 01/15/22 18:45 73 11 L 124/94 93 L 01/15/22 18:44 70 11 L 124/94 93 L 01/15/22 18:40 98.0 F 72 18 124/94 94 L 01/15/22 16:39 73 18 136/94 96 01/15/22 14:42 75 20 127/93 96 01/15/22 13:14 78 14 132/85 95 01/15/22 11:22 86 20 133/92 95 Intake and Output 01/15/22 01/16/22 01/16/22 22:59 06:59 14:59 Intake Total 390.0 1020.0 375.0 Output Total 550 0 Balance 390.0 470.0 375.0 Intake: IV 50 Intake, IV Titration 340.0 1020.0 225.0 Amount Alteplase 10 mg In Sodium 20 60 Chloride 0.9% 90 ml @ 1 MG/HR 10 mls/hr IV .Q10H [facility] Rx#:[id number] Alteplase 10 mg In Sodium 20 60 Chloride 0.9% 90 ml @ 1 MG/HR 10 mls/hr IV .Q10H [facility] Rx#:[id number] Heparin Sod,Pork in 0.45% 5.0 22.5 7.5 NaCl 25,000 unit In 0.45 % NaCl 1 250ml.bag @ 2.5 mls/hr IV .Q24H [facility] Rx#: [id number] Heparin Sod,Pork in 0.45% 5.0 22.5 7.5 NaCl 25,000 unit In 0.45 % NaCl 1 250ml.bag @ 2.5 mls/hr IV .Q24H [facility] Rx#: [id number] Sodium Chloride 0.9% 1, 70 315 105 000 ml @ 35 mls/hr IV . Q24H [facility] Rx#:[id number] Sodium Chloride 0.9% 1, 70 315 105 000 ml @ 35 mls/hr IV . Q24H [facility] Rx#:[id number] Sodium Chloride 0.9% 1, 150 225 000 ml @ 75 mls/hr IV . [id number] [facility] Rx#:[id number] Oral 150 Output: Urine 550 0 Other: Voiding Method Urinal Urinal Weight 120.202 kg 125.8 kg Results CBC & Chem 7: 01/16/22 07:49 01/15/22 15:05 Labs: Abnormal Lab Results - Last 24 Hours (Table) 01/15/22 01/15/22 01/15/22 Range/Units 11:05 11:05 11:05 APTT (22.0-30.0) sec D-Dimer 6.95 H (<0.60) mg/L FEU Glucose 130 H (74-99) mg/dL Troponin I 0.266 H* (0.000-0.034) ng/mL 01/15/22 Range/Units 15:05 APTT 77.4 H (22.0-30.0) sec D-Dimer (<0.60) mg/L FEU Glucose (74-99) mg/dL Troponin I (0.000-0.034) ng/mL Thrombosis Risk Factor Assmnt - Choose All That Apply Any of the Below Risk Factors Present?: Yes Each Factor Represents 1 point: Age 41-60 years Other Risk Factors: Yes Each Risk Factor Represents 2 Points: Central venous access Each Risk Factor Represents 3 Points: History of DVT/PE Other congenital or acquired thrombophilia - If yes, enter type in comment: No Thrombosis Risk Factor Assessment Total Risk Factor Score: 6 Thrombosis Risk Factor Assessment Level: High Risk
--- NOTE | 2022-01-16 18:05 | P.DS ---
Providers Date of admission: 01/15/22 12:49 Expected date of discharge: 01/16/22 Attending physician: Andrea Karimi Consults: 01/15/22 12:49 Consult Physician Urgent Consulting Provider: Leonor Tony Consult Reason/Comments: Pulmonary embolism Do you want consulting provider notified?: Yes Primary care physician: Hugo Pritchard [facility] Course: Chief Complaint: Short of breath This is a very pleasant 66-year-old patient who does follow Dr. Hugo Pritchard. Patient has been much unremarkable pass medical history except for arthritis especially the knees. Patient does a nonambulatory drop pretty much sits on the desk quite a bit. Otherwise no real other medical history. About 3 weeks ago while playing golf noticed that he is beginning short of breath and walking incline. He notices that the symptoms progressively got worse. Becoming more and more short of breath. Became more profound yesterday. No orthopnea. No edema. No swelling of the legs. No family history of blood clots. Symptoms became quite significant yesterday. No fever no chills. No cough. In the ER as chest CTA showed bilateral extensive pulmonary emboli with evidence of right heart strain. When I was called by Dr. Jensen from ER and did call Dr. Tony from vascular. They do patient was taken down to the OR andECOS was placed. Saw the patient with ICU. at the bedside. 01/16/2022: Patient's IV heparin and later TPN was discontinued. Patient did walk down the hallway. Pulse ox was 92%. Started on eliquis. Questions were answered to the patient and . Activity discussed. Discussion and discharge planning more than 35 minutes Past medical history to include: Arthritis Social history: . Employed. Does smoke in the past. No significant alcohol history. Family history: Reviewed, noncontributory to presentation Physical examination: VITAL SIGNS: 63, 19, 04/26/1982, 95% room air GENERAL: Up in bed, comfortable EYES: Pupils equal. Conjunctiva normal. HEENT: External appearance of nose and ears normal, oral cavity grossly normal. NECK: JVD not raised; masses not palpable. HEART: First and second heart sounds are normal; no edema. LUNGS: Respiratory rate normal; decreased breath sound. ABDOMEN: Soft, nontender, liver spleen not palpable, no masses palpable. Groin: No bruit PSYCH: Alert and oriented x3; mood and affect normal. MUSCULOSKELETAL:No Clubbing/cyanosis;muscles-grossly intact. Evidence of OA INVESTIGATIONS, reviewed in the clinical context: January 16: WBC 8.3 hemoglobin 13.9 WBC 8.7 hemoglobin 15.4 potassium 4.2 creatinine 0.77 Troponin I 0.266 COVID 19: Not detected 2-D echocardiogram: EF 55-60%. Moderate concentric LVH. Moderate to severe right ventricular dilatation. EKG tracing personally reviewed by me-normal sinus rhythm, nonspecific finding Chest CTA: Extensive pulmonary emboli with evidence of right heart strain. Right sacral consolidation opacities within the bilateral lower lobes. Moderate cardiomegaly. Assessment and plan: -Acute bilateral severe pulmonary embolism with right ventricular dilatation. IV heparin. Vascular surgical consulted who proceeded to do well ECOS with IV heparin and IV TPA. Eliquis. Cleared by vascular for discharge -Bilateral acute pulmonary infarct from PE - left ventricular hypertrophy -IV heparin monitoring Follow PTT -Obesity BMI 34.7 Weight loss measures -Primary osteoarthritis Tylenol as needed Disposition: Home Plan - Discharge Summary New Discharge Prescriptions: New Apixaban [Eliquis Starter Pack (for VTE)] 5 - 10 mg PO DIRECTED 30 Days #1 each Discharge Medication List Apixaban [Eliquis Starter Pack (for VTE)] 5 - 10 mg PO DIRECTED 30 Days #1 each 01/16/22 [Rx] Follow up Appointment(s)/Referral(s): Hugo Pritchard MD [Primary Care Provider] - 3 Days Discharge Disposition: HOME SELF-CARE
--- NOTE | 2022-01-22 13:57 | CDI ---
Documentation Clarification Form Date: 01/16/2022 09:36:38 AM From: Lynda Ardon RN CCDS Admit Date: 01/15/2022 12:49:00 PM Patient Name: Lm Avila Visit Number: [id number] Discharge Date: ATTENTION: The Clinical Documentation Specialists (CDI) and [facility] Coding Staff appreciate your assistance in clarifying documentation. Please respond to the clarification below the line at the bottom and electronically sign. The CDI & [facility] Coding staff will review the response and follow-up if needed. Please note: Queries are made part of the Legal Health Record. If you have any questions, please contact the author of this message via ITS. Dr. Karimi, Suspected right heart strain is documented 01/15, Vascular Surgery note. Additional clarification regarding the Suspected right heart strain is requested. History/Risk Factors: 66-year-old male presents to the ED with shortness of breath with exertion started 2-3 weeks ago. Medical history: Irregular heartbeat and anxiety. 01/15, Vascular Surgery. Clinical Indicators: BNP 01/15: 557 CT chest angio: 02/15 Extensive pulmonary emboli with CT evidence of right heart strain. Treatment: 01/15 EXOS Catheter; 01/15 01/16 Alteplase IVPB; 01/15 01/15 Heparin IVPB Please clarify the acuity and etiology of Cor pulmonale, if known: [ ] Acute Cor pulmonale due to pulmonary embolism [ ] Unable to determine [ ] Other, please specify Template Last Revised: May 2020) No cor pulmonale MTDD
== END 2022-01-16 15:31 | disposition home or self-care (01) | DRG 167 ==
LOC: EC 10:26 → 3SCARD 12:49 → 2SICU 14:06
PROVIDERS: ADMIT Hospitalist; ATTEND Hospitalist
PROC: 3E04317 Introduction of Other Thrombolytic into Central Vein, Percutaneous Approach (ICD-10-PCS; principal; 2022-01-15 19:20)
PROC: 02FQ3Z0 Fragmentation of Right Pulmonary Artery, Percutaneous Approach, Ultrasonic (ICD-10-PCS; principal; 2022-01-15 19:20)
PROC: 02FR3Z0 Fragmentation of Left Pulmonary Artery, Percutaneous Approach, Ultrasonic (ICD-10-PCS; principal; 2022-01-15 19:20)
DX: I26.99 Other pulmonary embolism without acute cor pulmonale (principal); I82.411 Acute embolism and thrombosis of right femoral vein; I82.431 Acute embolism and thrombosis of right popliteal vein; I77.810 Thoracic aortic ectasia; Z20.822 Contact with and (suspected) exposure to COVID-19; E66.9 Obesity, unspecified; I51.7 Cardiomegaly; I49.9 Cardiac arrhythmia, unspecified; R77.8 Other specified abnormalities of plasma proteins; M19.91 Primary osteoarthritis, unspecified site; Z68.34 Body mass index [BMI] 34.0-34.9, adult; Z87.891 Personal history of nicotine dependence
CPT/HCPCS: 36415; 37211; 71046; 71275; 76937; 80048; 80053; 83605; 83735; 83880; 84484; 85025; 85027; 85379; 85384; 85610; 85730; 87635; 93005; 93306; 93970; 96365; 96366; 99291